=== PATIENT | male | born 1985 | race Caucasian/White ===

== ENCOUNTER → 2018-03-13 | Outpatient (REF) | payer OTHER | LOC: M SMT 17:25 | DX: Z30.2 Encounter for sterilization (principal) ==

== ENCOUNTER → 2018-05-09 | Outpatient (REF) | payer OTHER ==
[2018-05-09 13:20] LABS: IMMMOTILE SPERM CENTRIFUGED ABSENT (ABSENT); IMMOTILE SPERM ABSENT (ABSENT); MOTILE SPERM ABSENT (ABSENT); MOTILE SPERM CENTRIFUGED ABSENT (ABSENT); SEMEN APPEARANCE OPAQUE (OPAQUE); SEMEN VISCOSITY VISCOUS (LIQUID); SEMEN pH 8.5 (7.0-8.0); WBC CONCENTRATION <=1 M/ml (<=1 M/ml)
== END ==
LOC: M SMT 12:35
DX: Z98.52 Vasectomy status (principal)